=== PATIENT | female | born 1950 | race Caucasian/White ===

== ENCOUNTER 2021-05-07 16:25 | Inpatient (IN) | payer MEDICARE, OTHER ==
[~2021-05-07] VITALS: Ht 170.2 cm; Wt 107.5 kg
--- NOTE | 2021-05-07 16:45 | NUR ---
1645: PT TO ROOM T3, A&OX3, GCS 15, RR EVEN & UNLABORED, NO S/S OF ACUTE DISTRESS NOTED AT THIS TIME, PT SET TO MONITOR, IV 20" INITIATED TO RAC. BLOOD DRAWN AND SENT TO LAB. WILL CONTINUE TO MONITOR. 1715: PHYSICIAN TO BEDSIDE AT THIS TIME. 1730: CONSENT FOR RECORDS RELEASE SIGNED AND GIVEN TO POMPOM MAKER. 1800: PT REMAINS SET TO MONITOR, NO S/S OF ACUTE DISTRESS NOTED AT THIS TIME, WILL CONTINUE TO MONITOR. 183: MEDS GIVEN SEE JAN. 184: PT UNABLE TO TAKE PO K+ DUE TO NAUSEA. PHYSICIAN INFORMED. 190: REPORT GIVEN TO BATCH HEAT TREAT OPERATOR RN. NO S/S OF ACUTE DISTRESS NOTED AT TIME OF HAND OFF, RR EVEN & UNLABPRED, PT REMAINS SET TO MONITOR.
[2021-05-07 17:01] LABS: BASOPHILS 0.9 % (0-2); EOSINOPHILS 1.9 % (0-7); HEMOGLOBIN 10.6 g/dL (12-16); MCH 35.8 pg (26.0-34.0); MCHC 34.1 g/dL (31.0-37.0); MCV 104.9 fL (80.0-100.0); MEAN PLATELET VOLUME 9.1 fL (7.4-10.4); MONOCYTES 7.7 % (2-11); NEUTROPHILS 77.5 % (40-80); PLATELET COUNT 265 10x3/uL (130-400); RBC 2.96 10x6/uL (4.00-5.40); RDW 15.9 % (11.5-14.5); WBC 6.1 10x3/uL (4.8-10.8)
[2021-05-07 17:15] LABS: ALBUMIN 3.5 g/dL (3.4-5.0); ANION GAP 13.7 mmol/L (8-16); BILIRUBIN - TOTAL 1.27 mg/dL (0.2-1.3); CALCIUM 9.2 mg/dL (8.5-10.1); CARBON DIOXIDE 26.1 mmol/L (21.0-32.0); CREATININE - SERUM 1.6 mg/dL (0.6-1.3)
[2021-05-07 17:18] LABS: POTASSIUM - SERUM 2.8 mmol/L (3.5-5.1)
[2021-05-07 17:43] LABS: INR 10.69 (0.85-1.17); PROTIME 78.8 SECONDS (11.6-15.0)
--- NOTE | 2021-05-07 17:44 | NUR ---
CRITICALLAB: PT 78.[address] XIAO NOTIFIED
[2021-05-07 21:53] VITALS: BP 125/53
--- NOTE | 2021-05-07 22:38 | NUR ---
MED REC LIST REQUESTED FROM [facility]. AWAITING FAX.
--- NOTE | 2021-05-07 23:00 | NUR ---
PT FROM ER VIA W/C, PT AAO X 4, AMBULATED TO BED, NO DISTRESS NOTED, CL IN REACH, SR UP X 2.
[2021-05-08] MEDS ORDERED: ZOFRAN4 MG PO (00:01)
[2021-05-08] MEDS ORDERED: TOPROL XL100 MG PO (00:01)
[2021-05-08] MEDS ORDERED: COLCRYS0.6 MG PO (00:02)
[2021-05-08] MEDS ORDERED: PACERONE200 MG PO (00:04)
[2021-05-08] MEDS ORDERED: WARFARIN SODIUM5 MG PO (00:05)
[2021-05-08 01:01] VITALS: BP 140/58; BMI 37.3
[2021-05-08 05:46] VITALS: BP 104/35
[2021-05-08 06:01] LABS: INR 6.17 (0.85-1.17); PROTIME 51.1 SECONDS (11.6-15.0)
[2021-05-08 06:19] LABS: ALBUMIN 2.8 g/dL (3.4-5.0); ANION GAP 14.8 mmol/L (8-16); BILIRUBIN - TOTAL 1.06 mg/dL (0.2-1.3); CALCIUM 8.7 mg/dL (8.5-10.1); CARBON DIOXIDE 24.4 mmol/L (21.0-32.0); CREATININE - SERUM 1.4 mg/dL (0.6-1.3); MAGNESIUM - SERUM 1.8 mg/dL (1.8-2.4); PHOSPHOROUS 2.7 mg/dL (2.5-4.9); POTASSIUM - SERUM 3.2 mmol/L (3.5-5.1); PROTEIN - SERUM 5.8 g/dL (6.4-8.2); THYROID STIMULATING HORMONE 1.92 uIU/mL (0.36-3.74)
[2021-05-08 07:15] LABS: BASOPHILS 0.6 % (0-2); EOSINOPHILS 2.3 % (0-7); HEMATOCRIT 26.9 % (36.0-48.0); HEMOGLOBIN 9.2 g/dL (12-16); LYMPHOCYTES 11.6 % (15-50); MCH 36.4 pg (26.0-34.0); MCHC 34.4 g/dL (31.0-37.0); MCV 105.8 fL (80.0-100.0); MEAN PLATELET VOLUME 9.4 fL (7.4-10.4); MONOCYTES 8.5 % (2-11); RBC 2.54 10x6/uL (4.00-5.40); RDW 15.7 % (11.5-14.5); WBC 5.1 10x3/uL (4.8-10.8)
[2021-05-08 07:16] LABS: PLATELET COUNT 201 10x3/uL (130-400)
[2021-05-08 09:20] VITALS: BP 113/35
[2021-05-08 12:53] VITALS: BP 140/41
[2021-05-08 14:14] VITALS: Ht 170.2 cm; Wt 107.5 kg
[2021-05-08 16:45] VITALS: BP 131/36
[2021-05-08 20:45] VITALS: BP 110/44
--- NOTE | 2021-05-08 21:00 | NUR ---
ASSESSMENT COMPLETED ON THIS PT. PT TELLS ME SHE IS FROM [place]. HE WAS ADMITTED WITH INTRACTABLE NAUSEA AND VOMITING. SHE HAS HAD NO N/V THIS SHIFT AND ON THE DAY SHIFT. SHE IS HUNGRY. SHE HAS A RIGHT AC WITH NS AT 75 ML/HR. SHE WEARS A C PAP AT NIGHT. SHE TURNS HERSELF COMPLETELY AND GETS UP TO GO TO THE BR ALONE. HE HAS A PACEMAKERE/ DEFIB IN PLACE. HER RATE IS 64 WITH PACED RATE PER PHYSICAL THERAPIST CENTER MANAGER. SHE IS VERY A/A/O. HER DAUGHTER IN LAW, CELINA, HAS BEEN WITH HER THIS EVENING. THE LAB NEEDS A STOOL SPECMIN ON HER AND THE CUP IS IN THE ROOM FOR HER AND A HAT ON THE TOILET. SHE WILL LET US KNOW WHEN SHE COLLECTS THE SPECIMEN. NO C/O AT THIS TIME. CALL LIGHT CLOSE AT HAND AND SR UP X2. I GAVE PT SOME CARLOS TO SEE IF THAT MADE HER SICK. SHE TOOK ONE BITE AND SHE STATES IT LEFT A BAD TASTE IN HER MOUTH.
[2021-05-09 00:52] VITALS: BP 143/44
[2021-05-09 05:20] VITALS: BP 123/44
[2021-05-09 06:55] LABS: % SATURATION 27 % (15-55); IRON 54 ug/dl (35-150); TOTAL IRON BIND CAPACITY 197 ug/dl (260-445); UNSAT IRON BIND CAPACITY 143 ug/dl (150-375)
[2021-05-09 06:57] LABS: BASOPHILS 0.9 % (0-2); EOSINOPHILS 3.2 % (0-7); HEMATOCRIT 25.9 % (36.0-48.0); HEMOGLOBIN 8.9 g/dL (12-16); LYMPHOCYTES 13.7 % (15-50); MCH 36.4 pg (26.0-34.0); MCHC 34.5 g/dL (31.0-37.0); MCV 105.5 fL (80.0-100.0); MONOCYTES 9.8 % (2-11); NEUTROPHILS 72.4 % (40-80); PLATELET COUNT 190 10x3/uL (130-400); RBC 2.45 10x6/uL (4.00-5.40); RDW 15.8 % (11.5-14.5); WBC 4.1 10x3/uL (4.8-10.8)
[2021-05-09 07:04] LABS: INR 1.54 (0.85-1.17); PROTIME 17.1 SECONDS (11.6-15.0)
[2021-05-09 07:41] LABS: ALBUMIN 2.7 g/dL (3.4-5.0); ANION GAP 10.2 mmol/L (8-16); BILIRUBIN - TOTAL 1.21 mg/dL (0.2-1.3); CALCIUM 8.6 mg/dL (8.5-10.1); CARBON DIOXIDE 26.9 mmol/L (21.0-32.0); CREATININE - SERUM 1.2 mg/dL (0.6-1.3); MAGNESIUM - SERUM 1.8 mg/dL (1.8-2.4); PHOSPHOROUS 2.4 mg/dL (2.5-4.9); POTASSIUM - SERUM 3.1 mmol/L (3.5-5.1); PROTEIN - SERUM 5.6 g/dL (6.4-8.2)
--- NOTE | 2021-05-09 08:06 | NUR ---
AM ROUNDING DONE WITH PATIENT VOICING NO COMPLAINTS AT THIS TIME. OLD PACEMAKE SITE SEEN TO LEFT UPPER CHEST, ON HEART MONITOR SHOWING SB, HR 52. ON ROOM AIR. RIGHT AC PIV SEEN WITH NS INFUSING AT 75 CC/HR, ORANGE SWAB CAPS IN USE. ON EP, K+ IS 3.1, WILL COVER WITH PROTOCOL. NEED STOOL SAMPLE.
[2021-05-09 09:00] VITALS: BP 103/52
--- NOTE | 2021-05-09 09:17 | NUR ---
PERMITS SIGNED FOR EGD WITH ITVA AND POTASSIUM TREATED. LAB REDRAW TIME PLACED.
--- NOTE | 2021-05-09 10:44 | NUR ---
STOOL SENT TO LAB ORDERED.
--- NOTE | 2021-05-09 12:15 | NUR ---
TO GI LAB VIA BED.
--- NOTE | 2021-05-09 12:59 | NUR ---
RETURNS FROM GI LAB. SLEEPY. IV TO RIGHT AC INFUSING WITHOUT PROBLEMS. WILL OFFER FOOD WHEN PATIENT WAKES UP BETTER. CALL LIGHT IN USE.
--- NOTE | 2021-05-09 15:31 | OP ---
PATIENT NAME: BRENT YIP MEDICAL RECORD: [id number] :48 LOCATION:D.M2 D.2139 ADMISSION DATE:05/08/21 SURGEON: DIDI ANDERSON MD DATE OF OPERATION: 05/09/2021 PROCEDURE: Upper endoscopy. PREOPERATIVE DIAGNOSES: Nausea and vomiting. This is an inpatient case. Ms. Yip is a pleasant female with onset of nausea and vomiting. MEDICATION: Propofol 100 mg. DESCRIPTION OF PROCEDURE: The patient was placed in the left lateral position and made comfortable. The endoscope was advanced through the mouth and advanced to the second part of the duodenum. The entire examined esophagus was normal. In the gastric body was erythema consistent with mild gastritis. The small bowel was normal. The patient tolerated the procedure well. FINAL DIAGNOSES: Normal esophagus, mild gastritis. Biopsies taken with cold forceps. Normal duodenum. PLAN: Check histology results. Advance diet. Continue proton pump inhibitor, which she is already on. TRANSINT:[id number] Voice Confirmation ID: [id number] DOCUMENT ID: [id number] DIDI ANDERSON MD at 1531 CC: [id number] DICTATION DATE: 05/09/21 1244 CAP LINING MACHINE OPERATOR: 05/09/21 1253 ADM IN [facility] [address] [place] [address]
[2021-05-09 21:00] VITALS: BP 116/41
[2021-05-10 00:13] VITALS: BP 116/41
[2021-05-10 03:05] VITALS: BP 126/48
[2021-05-10 05:20] VITALS: BP 132/50
[2021-05-10 06:14] LABS: INR 1.26 (0.85-1.17); PROTIME 14.7 SECONDS (11.6-15.0)
[2021-05-10 06:25] LABS: EOSINOPHILS 2.6 % (0-7); HEMATOCRIT 27.5 % (36.0-48.0); HEMOGLOBIN 9.4 g/dL (12-16); LYMPHOCYTES 19.9 % (15-50); MCH 36.7 pg (26.0-34.0); MCHC 34.3 g/dL (31.0-37.0); MCV 107.2 fL (80.0-100.0); MEAN PLATELET VOLUME 9.2 fL (7.4-10.4); MONOCYTES 8.8 % (2-11); NEUTROPHILS 67.7 % (40-80); PLATELET COUNT 218 10x3/uL (130-400); RBC 2.56 10x6/uL (4.00-5.40); RDW 16.3 % (11.5-14.5); WBC 4.2 10x3/uL (4.8-10.8)
[2021-05-10 06:35] LABS: ALBUMIN 2.8 g/dL (3.4-5.0); ANION GAP 10.5 mmol/L (8-16); BILIRUBIN - TOTAL 0.95 mg/dL (0.2-1.3); CALCIUM 8.5 mg/dL (8.5-10.1); CARBON DIOXIDE 26.1 mmol/L (21.0-32.0); CREATININE - SERUM 1.1 mg/dL (0.6-1.3); MAGNESIUM - SERUM 1.7 mg/dL (1.8-2.4); PHOSPHOROUS 2.3 mg/dL (2.5-4.9); POTASSIUM - SERUM 3.6 mmol/L (3.5-5.1); PROTEIN - SERUM 5.9 g/dL (6.4-8.2)
[2021-05-10 07:46] VITALS: BP 145/41
--- NOTE | 2021-05-10 08:07 | NUR ---
Inserted 22 gauge catheter in right forearm. Placement checked with blood aspirationa nad flushed with 3 ml of NS. Secured with tape andf tegaderm.
--- NOTE | 2021-05-10 08:46 | NUR ---
AM ROUNDING DONE WITH PATIENT STATING THAT SHE HAS HAD NO NAUSEA LAST NIGHT. STATES ALSO TO NO BURPING BEFORE PROCEDURE. ON ROOM AIR. RIGHT PIV SEEN WITH NS INFUSING AT 75 CC/HR. ON HEART MONITOR SHOWING SB, HR 54 WITH BBB. GLASSES ON. STATES TO SOME DIARREHA LAST SHIFT. NO PAIN.
[2021-05-10 12:00] VITALS: BP 130/46
[2021-05-10] MEDS ORDERED: CARAFATE1 G PO (12:17)
[2021-05-10] MEDS ORDERED: PROTONIX20 MG PO (12:18)
[2021-05-10] MEDS ORDERED: WARFARIN SODIU2.5 MG PO (12:18)
--- NOTE | 2021-05-10 12:57 | NUR ---
Nutrition Follow-up: EGD yesterday showed mild gastritis. Tolerated solids this AM. Denies N/V, chewing/swallowing difficulty. Diarrhea last night. Pt to be d/c'd today. Diet: Regular No new wt; last wt: 237# (05/08) Labs noted: GFR 52, PO4 2.3, Mg 1.7, Alb 2.8 Meds noted: Carafate, Protonix, NS @ 75, electrolyte protocol -Encourage PO intake and honor food preferences. -RD will follow up within 4-5 days if pt still admitted.
--- NOTE | 2021-05-10 16:19 | NUR ---
SALINE LOCK REMOVED, DISCHARGE PAPERS DISCUSSED WITH PATIENT AND WAITING ON DAUGHTER FOR RIDE HOME.
== END 2021-05-10 16:42 | disposition home health service (06) | DRG 391 ==
LOC: D.ER 16:25 → D.M2 22:26 → OBSVTIME 22:27 → D.M2 05-08 14:48
PROVIDERS: Family Medicine; Internal Medicine Gastroenterology; ADMIT Emergency Medicine; ATTEND Emergency Medicine
PROC: 0DB68ZX Excision of Stomach, Via Natural or Artificial Opening Endoscopic, Diagnostic (ICD-10-PCS; principal; 2021-05-09 11:58)
DX: K29.70 Gastritis, unspecified, without bleeding (principal); K66.1 Hemoperitoneum; K82.1 Hydrops of gallbladder; D53.9 Nutritional anemia, unspecified; E87.6 Hypokalemia; I48.91 Unspecified atrial fibrillation; Z79.01 Long term (current) use of anticoagulants; G47.33 Obstructive sleep apnea (adult) (pediatric); K21.9 Gastro-esophageal reflux disease without esophagitis; R79.1 Abnormal coagulation profile; Z86.73 Personal history of transient ischemic attack (TIA), and cerebral infarction without residual deficits